=== PATIENT | female | born 1995 | race Caucasian/White ===

== ENCOUNTER 2022-07-29 12:33 | Emergency (ER) | payer OTHER ==
[~2022-07-29] VITALS: Ht 165.1 cm; Wt 79.4 kg
[2022-07-29] MEDS ORDERED: IV NORMAL SALINE 1000 ML BAG IV ONE (13:00)
[2022-07-29] MEDS ORDERED: IBUPROFEN 600 MG TABLET PO ONE (13:00)
[2022-07-29] MEDS ORDERED: IBUPROFEN 600 MG TABLET ONE (13:01)
--- NOTE | 2022-07-29 13:10 | NUR ---
patient c/o lower abdominal pain, burning with urination, fever, chills. Seen by
[2022-07-29 13:16] LABS: *BILIRUBIN,URIN NEGATIVE (NEGATIVE); *BLOOD, URINE 2+ (NEGATIVE); *CLARITY,URINE SLIGHTLY CLOUDY (CLEAR); *COLOR,URINE YELLOW (YELLOW); *KETONES,URINE NEGATIVE (NEGATIVE); *UROBILINOGEN,URINE 0.2 E.U./dl (NORMAL); LEUKOCYTE ESTERASE ,URINE 2+ (NEGATIVE); NITRITE, URINE NEGATIVE (NEGATIVE); UGLUCOSE NEGATIVE (NEGATIVE)
[2022-07-29 13:25] LABS: *URINE HCG, QUAL NEGATIVE (NEGATIVE)
[2022-07-29 13:28] LABS: BACTERIA,URINE FEW /HPF (NONE SEEN); SQUAMOUS EPITHELIAL CELL,UR FEW /HPF (NONE SEEN)
[2022-07-29 13:30] LABS: MUCUS,URINE NONE SEEN /LPF (0-FEW)
[2022-07-29 13:40] LABS: HEMATOCRIT 38.5 % (31.2-41.9); MEAN CORPUSCULAR HEMOGLOBIN 27.9 uug (24.7-32.8); PLATELET COUNT (AUTO) 353 K/uL (179-408)
[2022-07-29 13:46] LABS: BILIRUBIN,DIRECT 0.2 mg/dL (0.0-0.2); BILIRUBIN,TOTAL 0.8 mg/dL (0.2-1.0); CREATININE 0.8 mg/dL (0.6-1.3); POTASSIUM 3.4 mmol/L (3.5-5.1)
[2022-07-29] MEDS ORDERED: CEFTRIAXONE 1 G in IV DEXTROSE 5% 50 ML IV ONE (14:15)
[2022-07-29] MEDS ORDERED: ACETAMINOPHEN ES 500 MG TABLET PO ONE (14:45)
[2022-07-29] MEDS ORDERED: CEFTRIAXONE /D5W 50ML IVPB **ER PYXIS IV ONE (14:56)
[2022-07-29] MEDS ORDERED: ACETAMINOPHEN ES 500 MG TABLET ONE (14:57)
[2022-07-29] MEDS ORDERED: CEFP200T14 PO (15:18)
--- NOTE | 2022-07-29 15:31 | NUR ---
PT STATES SHE FEELS MUCH BETTER WITH TX. IV CATH REMOVED. PT GLADIS. WELL
--- NOTE | 2022-07-29 15:32 | NUR ---
Patient discharged to home in stable condition. Written and verbal after care instructions given. Patient verbalizes understanding of instructions. Stressed follow up or return to ER for worsening s/s.
[2022-07-29 15:55] VITALS: BP 108/70
== END 2022-07-29 15:35 | disposition home or self-care (01) ==
LOC: ER 12:33
DX: N12 Tubulo-interstitial nephritis, not specified as acute or chronic (principal)
CPT/HCPCS: 99284; 96365; 80076; 80048; 81001; 84703; 83690; 85025; 87086; 36415; J0696; J7040; A4663; A9150

== ENCOUNTER 2025-03-01 14:44 | Emergency (ER) | payer OTHER ==
[~2025-03-01] VITALS: Ht 162.6 cm; Wt 86.2 kg
[~2025-03-01 14:44] MED LIST: CEFP200T14 PO
[2025-03-01] MEDS ORDERED: BENZ-13 PO (15:05)
[2025-03-01] MEDS ORDERED: IBUP-1955 PO (15:05)
[2025-03-01 15:17] VITALS: BP 102/64; O2SAT 100
== END 2025-03-01 15:18 | disposition home or self-care (01) ==
LOC: ER 14:44
DX: J06.9 Acute upper respiratory infection, unspecified (principal); Z60.2 Problems related to living alone; Z20.822 Contact with and (suspected) exposure to COVID-19
CPT/HCPCS: A4606; A4663